=== PATIENT | male | born 1985 | race Two or more races ===

== ENCOUNTER 2017-07-30 22:30 | Emergency (ER) | payer SELFPAY ==
[2017-07-30 22:52] VITALS: BP 135/84
[2017-07-30] MEDS ORDERED: ONDANSETRON 4 MG TAB.RAPDIS PO ONE (22:54)
[2017-07-30] MEDS ORDERED: IBUPROFEN 800 MG TABLET PO ONE (22:54)
[2017-07-30] MEDS ORDERED: SULFAMETHOXAZOLE/TRIMETHOPRIM 800-160 MG TABLET PO ONE (22:54)
[2017-07-30] MEDS ORDERED: LIDOCAINE 4%/TETRACAINE 0.5%/EPI 0.18% 5 ML TOPICAL SOLN TOP ONE (22:54)
[2017-07-30] MEDS ORDERED: HYDROCODONE/ACETAMINOPHEN 5-325 MG (6 TAB/ER DISP) PO PRN (22:55)
--- NOTE | 2017-07-30 22:59 | ER Document Report ---
HPI - HPI Patient complains to provider of: Left buttocks abscess Onset: Other - 3 days Onset/Duration: Gradual Pain Level: 5 Context: 31-year-old nondiabetic male complaining of left buttocks abscess for 3 days. It drained a little bit but it continues to get bigger. No history of MRSA. No fever or chills. Associated Symptoms: None Exacerbated by: Denies Relieved by: Denies Similar symptoms previously: No Recently seen / treated by doctor: No - ROS ROS below otherwise negative: Yes Systems Reviewed and Negative: Yes All other systems reviewed and negative Past Medical History - General Information source: Patient - Social History Smoking Status: Current Every Day Smoker Cigarette use (# per day): Yes - 10 Frequency of alcohol use: None Drug Abuse: Marijuana - occ Occupation: Construction Lives with: Family Family History: DM - Medical History Medical History: Negative Surgical Hx: Negative - Immunizations Hx Diphtheria, Pertussis, Tetanus Vaccination: Yes - 2013 Vertical Provider Document - CONSTITUTIONAL Agree With Documented VS: Yes Exam Limitations: No Limitations General Appearance: Mild Distress - INFECTION CONTROL TRAVEL OUTSIDE OF THE [place] IN LAST 30 DAYS: No - HEENT HEENT: Normocephalic - NECK Neck: Supple - RESPIRATORY Respiratory: Breath Sounds Normal, No Respiratory Distress - CARDIOVASCULAR Cardiovascular: Regular Rate, Regular Rhythm - MUSCULOSKELETAL/EXTREMETIES Musculoskeletal/Extremeties: MAEW - NEURO Level of Consciousness: Awake, Alert - DERM Integumentary: Abscess - 4 cm induration abscess with surrounding erythema to the left superior lateral buttocks Course - Vital Signs Vital signs: Temp Pulse Resp BP Pulse Ox 98.3 F 83 16 135/84 H 99 07/30/17 22:51 07/30/17 22:51 07/30/17 22:51 07/30/17 22:51 07/30/17 22:51 Procedures - Incision and Drainage Left Buttock Time completed: 23:41 Type: Simple Anesthetic type: 1% Lidocaine mL's of anesthetic: 3 Blade size: 11 I&D procedure: Sterile dressing applied, Other - surgiscrub, Incision Method: Incision made by scalpel Amount/type of drainage: large pus Adult Front & Back picture: 1 - abscess Discharge - Discharge Clinical Impression: Left buttocks abscess I&D Condition: Good Disposition: HOME, SELF-CARE Instructions: Abscess ([facility]), Trimethoprim-Sulfa ([facility]), Oral Narcotic Medication ([facility]), Post Incision and Drainage, Acetaminophen, Ibuprofen (General ) ([facility]) Additional Instructions: Keep this dressing on for 24 hours shower tomorrow night, wash vigorously with washclothe, then dry dressing Septra DS 1 twice a day Return to the emergency room if it does not improve daily Prescriptions: Ibuprofen [Motrin 600 mg Tablet] 600 mg PO Q8HP PRN #30 tablet PRN Reason: Sulfamethoxazole/Trimethoprim [Sulfamethoxazole-Tmp Ds Tablet] 1 each PO BID # 14 tablet
== END 2017-07-31 00:05 | disposition home or self-care (01) ==
LOC: ER 22:30
PROC: 0H98XZZ Drainage of Buttock Skin, External Approach (ICD-10-PCS; principal; 2017-07-30)
DX: L02.31 Cutaneous abscess of buttock (principal); F17.210 Nicotine dependence, cigarettes, uncomplicated
CPT/HCPCS: 99283; 10060; S0119; J3490

== ENCOUNTER 2019-06-30 12:54 | Emergency (ER) | payer SELFPAY ==
[2019-06-30 13:01] VITALS: BP 122/80
--- NOTE | 2019-06-30 13:04 | ER Document Report ---
HPI - HPI Patient complains to provider of: Sore throat Time Seen by Provider: 06/30/19 12:59 Onset: Just prior to arrival Onset/Duration: Gradual Quality of pain: Achy Associated Symptoms: None Exacerbated by: Denies Relieved by: Denies Past Medical History - General Information source: Patient - Social History Smoking Status: Current Every Day Smoker Cigarette use (# per day): Yes Chew tobacco use (# tins/day): No Smoking Education Provided: No Family History: DM Renal/ Medical History: Denies: Hx Peritoneal Dialysis - Immunizations Hx Diphtheria, Pertussis, Tetanus Vaccination: Yes - 2013 Vertical Provider Document - CONSTITUTIONAL Agree With Documented VS: Yes - INFECTION CONTROL TRAVEL OUTSIDE OF THE [place] IN LAST 30 DAYS: No - HEENT HEENT: Atraumatic, Conjuctival Injection, Normocephalic, PERRLA, Pharyngeal Tenderness, Pharyngeal Erythema Notes: Posterior pharyngeal exudate and erythema no difficulty breathing or swallowing no pointing abscess no trismus - NECK Neck: Normal Inspection - RESPIRATORY Respiratory: Breath Sounds Normal - CARDIOVASCULAR Pulses: Normal: Brachial, Radial, Carotid, Femoral - GI/ABDOMEN Gastrointestinal: Abdomen Soft, Abdomen Non-Tender - REPRODUCTIVE Male Genitalia: Normal Inspection - BACK Back: Normal Inspection - NEURO Level of Consciousness: Awake, Alert, Appropriate Discharge - Discharge Clinical Impression: Strep pharyngitis Disposition: HOME, SELF-CARE Instructions: Penicillin V K ([facility]), Strep Throat ([facility]) Prescriptions: Prednisone [Deltasone 20 mg Tablet] 3 tab PO DAILY 5 Days #15 tablet Penicillin V Potassium [Penicillin Vk 500 mg Tablet] 500 mg PO BID #20 tablet
== END 2019-06-30 13:10 | disposition home or self-care (01) ==
LOC: ER 12:54
DX: J02.0 Streptococcal pharyngitis (principal); F17.210 Nicotine dependence, cigarettes, uncomplicated
CPT/HCPCS: 87070; 87880; 99283